=== PATIENT | female | born 1940 | race Caucasian/White ===

== ENCOUNTER → 2021-08-19 | Outpatient (CLI) | payer MEDICARE ==
--- NOTE | 2021-08-19 16:27 | RAD ---
EXAM: XR EXAM OF ANKLE_RIGHT 2 VIEWS, XR RIGHT HIP (WITH OR WITHOUT PELVIS) 2 VIEWS 08/19/2021 11:05 AM CLINICAL INDICATION: Chronic hip and ankle pain COMPARISON: None TECHNIQUE: 2 views of the right ankle. 3 views of the right hip and pelvis FINDINGS: Right ankle: No acute fracture. Alignment is normal. Joint spaces are maintained and the talar dome i s intact. There is a large plantar calcaneal enthesophyte. Soft tissue is normal. Right hip: The bones appear demineralized. No acute fracture. Alignment is normal. There is moderate bilateral hip joint space narrowing. Pubic symphysis and sacroiliac joints are normal. The lower lumb ar spine is unremarkable. IMPRESSION: 1. No acute osseous abnormality of the right ankle. Large plantar calcaneal enthesophyte. 2. 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 Electronically signed by: Bettye Shabazz MD (08/19/2021 4:25 PM) [id number]
== END ==
LOC: RAD 10:49
PROVIDERS: ATTEND Family Medicine
DX: M16.11 Unilateral primary osteoarthritis, right hip (principal); M77.31 Calcaneal spur, right foot; M25.851 Other specified joint disorders, right hip
CPT/HCPCS: 73502; 73600